=== PATIENT | female | born 1955 | race Caucasian/White ===

== ENCOUNTER 2017-07-11 11:06 | Day surgery (SDC) | payer BC ==
[~2017-07-11 11:06] MED LIST: Lactated Ringers 1,000 ML IV SCH; Sodium Chloride 0.9% 10 ML Syringe FLUSH PRN
[2017-07-11] MEDS ORDERED: Midazolam 1 MG/ML 2 ML SDV ONE ×2 (12:23→12:24)
[2017-07-11] MEDS ORDERED: Propofol 200 MG/20 ML SDV ONE ×2 (12:23→12:24)
--- NOTE | 2017-07-11 12:26 | PCM.PN ---
- General Info Date of Service: 07/11/17 - Review of Systems Systems Review Comment:: 62-year-old female with history of ulcerative colitis here for colonoscopy. Her last colon exam was in 2012. She denies any recent problems with bowel movements specifically denying any rectal bleeding. She is medically stable to proceed today with no significant change in her health status since her last exam. I have discussed the proposed colonoscopy with the patient. She understands indications options and risks and she agrees to proceed. - Patient Data Vitals - Most Recent: Last Vital Signs Temp 98.1 F 07/11/17 11:56 Pulse 64 07/11/17 11:56 Resp 18 07/11/17 11:56 BP 122/81 07/11/17 11:56 Pulse Ox 97 07/11/17 11:56 Weight - Most Recent: 66.678 kg Med Orders - Current: Current Medications Lactated Ringer's (Ringers, Lactated) 1,000 mls @ 125 mls/hr IV ASDIRECTED KATHLEEN Last Admin: 07/11/17 12:06 Dose: 125 mls/hr Sodium Chloride (Saline Flush) 10 ml FLUSH ASDIRECTED PRN PRN Reason: Keep Vein Open - Problem List Review Problem List Initiated/Reviewed/Updated: Yes - My Orders Last 24 Hours: My Active Orders 07/11/17 11:00 Patient Status [ADT] Routine Peripheral IV Care [RC] . DIRECTED Verify Patient Consent Obtain [RC] ASDIRECTED Lactated Ringers [Ringers, Lactated] 1,000 ml IV ASDIRECTED Sodium Chloride 0.9% [Saline Flush] 10 ml FLUSH ASDIRECTED PRN Peripheral IV Insertion Adult [OM.PC] Routine - Assessment Assessment:: History of ulcerative colitis - Plan Plan:: Colonoscopy
--- NOTE | 2017-07-11 13:08 | PCM.OPNOTE ---
- General Post-Op/Procedure Note Date of Surgery/Procedure: 07/11/17 Operative Procedure(s): Colonoscopy Findings: Extensive Sigmoid Diverticulosis Pre Op Diagnosis: History of Ulcerative Colitis Post-Op Diagnosis: Diverticulosis Anesthesia Technique: MAC Primary Surgeon: Mundo Pearce Pathology: none Output, Urine Amount: 0 EBL in mLs: 0 Complications: None Condition: Good
--- NOTE | 2017-07-11 16:06 | OR ---
Date of Procedure: 07/11/2017 PREOPERATIVE DIAGNOSIS: History of ulcerative colitis. POSTOPERATIVE DIAGNOSIS: Diverticulosis. OPERATION PERFORMED: Colonoscopy. INDICATIONS FOR SURGERY: This 62-year-old female has a history of ulcerative colitis. She comes for surveillance colonoscopy. FINDINGS: The patient does not have any visible signs of inflammation in the colon. She had extensive sigmoid diverticulosis with some looping and angulation of the colon in the sigmoid region, but the area does not appear acutely inflamed. The remainder of the colon mucosa appeared normal without visible inflammation or visible abnormalities. DESCRIPTION OF PROCEDURE: The patient was taken to the operating room. She was given intravenous sedation, and with her in the left lateral decubitus position, digital rectal exam was performed showing no rectal masses. The Olympus colonoscope was inserted into the rectum and retroflexed examination of the rectal canal was performed. The scope was then carefully advanced under direct visualization through the entire length of the colon until the cecum was reached. Advancing the scope was somewhat difficult, it did require a careful persistent manipulation along with some hand pressure, but eventually the cecum was able to be safely reached. Cecal acquisition was confirmed by noting the normal internal cecal anatomy including the appendiceal orifice and ileocecal valve. The light was also noted to transilluminate the abdominal wall in the right lower quadrant. After examining the cecum, the scope was slowly withdrawn sequentially re-examining the colonic segments until the entire colon and rectum had been fully examined. The scope was removed and the patient was taken from the operating room in satisfactory condition. ESTIMATED BLOOD LOSS: Zero. COMPLICATIONS: None. PROGNOSIS: Good. SHO Pearce MD /[id number]
== END 2017-07-11 14:03 | disposition home or self-care (01) ==
LOC: LL.SDS 11:06
PROVIDERS: ATTEND Surgery
DX: K57.30 Diverticulosis of large intestine without perforation or abscess without bleeding (principal); E03.9 Hypothyroidism, unspecified; K21.9 Gastro-esophageal reflux disease without esophagitis; E78.5 Hyperlipidemia, unspecified; Z79.899 Other long term (current) drug therapy
CPT/HCPCS: 45378; J2250; J2704; J7120; 00812